=== PATIENT | male | born 1995 | race Caucasian/White ===

== ENCOUNTER 2020-05-10 18:23 | Emergency (ER) | payer SELFPAY ==
[~2020-05-10] VITALS: Ht 170.2 cm; Wt 72.6 kg
[2020-05-10 18:33] VITALS: BP 137/88
--- NOTE | 2020-05-10 18:40 | NUR ---
Pt c/o jovanny eye pain with erythema and tearing x 5 days. Denies foreign body sensation, blurry vision, or double vision. PMH: DENIES
[2020-05-10] MEDS ORDERED: FLUORESCEIN OPTH STRIP 1 MG OP ONE (18:55)
[2020-05-10 19:14] VITALS: BP 118/81
--- NOTE | 2020-05-10 19:14 | NUR ---
Patient discharged with v/s stable. Written and verbal after care instructions given and explained. Patient alert, oriented and verbalized understanding of instructions. Ambulatory with steady gait. All questions addressed prior to discharge. ID band removed. Patient advised to follow up with PMD. Rx of DIPHENHYDRAMINE AND ERYTHROMYCIN given. Patient educated on indication of medication including possible reaction and side effects. Opportunity to ask questions provided and answered.
== END 2020-05-10 19:14 | disposition home or self-care (01) ==
LOC: MED 18:23
DX: S05.00XA Injury of conjunctiva and corneal abrasion without foreign body, unspecified eye, initial encounter (principal); T26.62XA Corrosion of cornea and conjunctival sac, left eye, initial encounter; X58.XXXA Exposure to other specified factors, initial encounter; Y93.89 Activity, other specified; Y92.89 Other specified places as the place of occurrence of the external cause; Y99.8 Other external cause status
CPT/HCPCS: 99283